=== PATIENT | female | born 1945 ===

== ENCOUNTER 2021-10-29 16:30 | Outpatient (CLI) | payer MEDICARE, OTHER | END 2021-10-29 16:31 | disposition home or self-care (01) | LOC: SLEEPLAB 16:30 | PROVIDERS: ATTEND Nurse Practitioner Family | DX: R06.89 Other abnormalities of breathing (principal); G47.33 Obstructive sleep apnea (adult) (pediatric); R06.83 Snoring; I10 Essential (primary) hypertension; G47.00 Insomnia, unspecified | CPT/HCPCS: 95800 ==